=== PATIENT | female | born 1955 | race Caucasian/White ===

== ENCOUNTER 2023-06-19 02:24 | Emergency (ER) | payer BC, OTHER ==
--- OUTSIDE RECORDS SUMMARY | 2023-06-19 02:27 | XMS REPORT | Continuity of Care Document ---
Author Name Unknown Address [address] [place] [address] [address] thconnect Address [address] [facility] 1 [address] [place] [address] Care Team Providers Care Grinding Wheel Dresser Name Role Phone [phone] Primary Care Physician UnavailLIANNE Bacon Attending Clinician Unavailable [email or web address] Attending Clinician UnavailPETEY Olivera Attending Clinician Unavailable DELORES ENGLAND Attending Clinician Unavail able [email or web address] Admitting Clinician Shon krueger Payers Payer Name Policy Type Policy Number Effective Date Expirati on Date Source MEDICARE PART A AND B [id number] 2021 00:00:00 [place] [id number] 2021 00:00:00 Allergies, Adverse Reactions, Alerts Allergy Name Allergy Type Status Severity Reaction(s) Onset Date Inactive Date Treating Clinician Comments Source HYDROCOD ONE DRUG INGREDI Active Other 2013-02 00:00: 00 MD Soo roldan HYDROCOD ONE DRUG INGREDI Active Other 2013-02 00:00: 00 MD Soo roldan HYDROCOD ONE DRUG INGREDI Active Other 2013-02 00:00: 00 MD Soo roldan HYDROCOD ONE DRUG INGREDI Active Other 2013-02 00:00: 00 MD Soo roldan HYDROCOD ONE DRUG INGREDI Active Other 2013-02 00:00: 00 MD Soo roldan HYDROCOD ONE DRUG INGREDI Active Other 2013-02 00:00: 00 MD Soo roldan HYDROCOD ONE DRUG INGREDI Active Other 2013-02 00:00: 00 MD Soo roldan HYDROCOD ONE DRUG INGREDI Active Other 2013-02 00:00: 00 MD Soo roldan HYDROCOD ONE DRUG INGREDI Active Other 2013-02 00:00: 00 MD Soo roldan HYDROCOD ONE DRUG INGREDI Active Other 2013-02 00:00: 00 MD Soo roldan HYDROCOD ONE DRUG INGREDI Active Other 2013-02 00:00: 00 MD Soo roldan HYDROCOD ONE DRUG INGREDI Active Other 2013-02 00:00: 00 MD Soo roldan HYDROCOD ONE DRUG INGREDI Active Other 2013-02 00:00: 00 MD Soo roldan HYDROCOD ONE DRUG INGREDI Active Other 2013-02 00:00: 00 MD Soo roldan HYDROCOD ONE DRUG INGREDI Active Other 2013-02 00:00: 00 MD Soo roldan HYDROCOD ONE DRUG INGREDI Active Other 2013-02 00:00: 00 MD Soo roldan HYDROCOD ONE DRUG INGREDI Active Other 2013-02 00:00: 00 MD Soo roldan HYDROCOD ONE DRUG INGREDI Active Other 2013-02 00:00: 00 MD Soo roldan HYDROCOD ONE DRUG INGREDI Active Other 2013-02 00:00: 00 MD Soo roldan HYDROCOD ONE DRUG INGREDI Active Other 2013-02 00:00: 00 MD Soo roldan HYDROCOD ONE DRUG INGREDI Active Other 2013-02 00:00: 00 MD Soo roldan HYDROCOD ONE DRUG INGREDI Active Other 2013-02 00:00: 00 MD Soo roldan HYDROCOD ONE DRUG INGREDI Active Other 2013-02 00:00: 00 MD Soo roldan HYDROCOD ONE DRUG INGREDI Active Other 2013-02 00:00: 00 MD Soo roldan Encounters Start Date/Time End Date/Time Encounter Type Admission Type Attending [facility] Care Department Encounter ID Source 2023-04-09 10:19:51 2023-04-09 11:02:35 Outpatient LIANNE BERNAL MDA, MDA [id number] MD Soo roldan 2023-04-09 09:24:51 2023-04-09 09:24:51 Outpatient LIANNE BERNAL MDA, MDA [id number] MD Soo roldan 2023-04-09 07:36:44 2023-04-09 07:36:44 Outpatient LIANNE BERNAL MDA MDA [id number] MD Soo roldan 2022-12-20 00:00:00 2022-12-20 00:00:00 Outpatient [email or web address] [email or web address]_S [facility] [id number] [facility] 2022-04-03 13:55:35 2022-04-03 15:05:15 Outpatient LIANNE BERNAL MDA MDA [id number] MD Soo roldan 2022-04-03 13:31:30 2022-04-03 13:31:30 Outpatient LIANNE BERNAL MDA MDA [id number] MD Soo roldan 2022-04-03 12:54:03 2022-04-03 13:26:48 Outpatient PETEY PAN MDA MDA [id number] MD Soo roldan 2021-05-23 12:25:27 2021-05-23 13:04:51 Outpatient PETEY PAN MDA MDA [id number] MD Soo roldan 2021-01-03 12:22:47 2021-01-03 13:59:52 Outpatient PETEY PAN MDA MDA [id number] MD Soo roldan 2021-01-03 10:51:20 2021-01-03 12:06:44 Outpatient DELORES PINK MDA MDA [id number] MD Soo roldan 2021-01-03 10:12:47 2021-01-03 10:12:47 Outpatient LISA KIRBY MDA [id number] MD Soo roldan 2020-03-01 00:00:00 2020-03-01 00:00:00 Outpatient LIANNE BERNAL MDA MDA [id number] MD Soo roldan
[2023-06-19] MEDS ORDERED: ONDANSETRON 4 MG/2 ML VIAL ONE (02:41)
[2023-06-19] MEDS ORDERED: HALOPERIDOL LACT 5 MG/ML INJ ONE (02:41)
[2023-06-19] MEDS ORDERED: MORPHINE 4 MG/ML SYR ONE ×2 (02:42→04:17)
[2023-06-19] MEDS ORDERED: FAMOTIDINE 20 MG/2 ML VIAL IV ONE (02:42)
[2023-06-19] MEDS ORDERED: NA CHLORIDE 0.9% 1,000 ML ONE (02:42)
[2023-06-19 03:25] LABS: RBC Red Blood Cell Count 3.75 M/uL (3.86-4.86)
[2023-06-19 03:26] LABS: Absolute Lymphocytes (CBC) 1.3 K/uL (0.7-4.9); Absolute Monocytes 0.5 K/uL (0.1-1.3); Absolute Neutrophil 11.1 K/uL (1.8-8.0); Basophils % 0.3 % (0-1.3); Eosinophils % 0.2 % (0-4.4); Hematocrit 34.5 % (36.0-45.0); Hemoglobin 11.6 g/dL (12.0-15.0); Lymphocytes % 10.2 % (15.3-44.8); MCH 30.9 pg (27.0-35.0); MCHC 33.5 g/dL (32.0-36.0); MPV 9.3 fL (7.6-11.3); Monocytes % 3.9 % (3.3-12.3); Neutrophils % 85.4 % (41.7-73.7); Platelets 259 thou/uL (152-406)
[2023-06-19 03:37] LABS: Albumin 3.3 g/dL (3.4-5.0); Bilirubin Total 0.4 mg/dL (0.2-1.0); Globulin 3.4 g/dL (2.3-3.5); Protein, Total 6.7 g/dL (6.4-8.2)
[2023-06-19 04:45] LABS: Band Neutrophils 1 % (0-1); Blood Morphology Comment NOT SEEN (NOT SEEN); Differential Total Cells Count 100; Lymphocytes 16 % (15-42); Monocytes 5 % (0-10); Platelet Estimate ADEQ; Segmented Neutrophils 78 % (40-80)
[2023-06-19] MEDS ORDERED: TAMSULOSIN 0.4 MG SR CAP ONE (06:30)
[2023-06-19] MEDS ORDERED: PROMETHAZINE 25 MG TABLET ONE (06:31)
[2023-06-19 06:49] LABS: Sqamous Epithelial <5 /HPF (None Seen); Urine Bacteria None Seen /HPF (<20); Urine Bilirubin NEGATIVE (Negative); Urine Blood 2+ (Negative); Urine Clarity Clear (Clear); Urine Color Light-Yellow (Yellow); Urine Culture Reflex Order NOT NEEDED; Urine Glucose NEGATIVE (Negative); Urine Ketones 1+ (Negative); Urine Microscopic Reflex YN ORDER UMIC; Urine Mucus Slight /HPF (None Seen); Urine Nitrite NEGATIVE (Negative); Urine Protein NEGATIVE (Negative); Urine Urobilinogen Normal (Normal)
--- NOTE | 2023-06-19 07:50 | EDPHYS ---
Physician Documentation [facility] Name: Jorge Ibanez Age: 67 yrs Sex: Female : 1955 Arrival Date: 06/19/2023 Time: 02:24 Bed 7 Private MD: ED Physician Popeye Armstrong HPI: 06/18 02:27 This 67 yrs old Female presents to ER via Unassigned with complaints of right sp4 lower abdominal pain . 20:30 67-year-old female presents with moderate to severe right lower abdominal pain right sp4 flank pain radiation to the right hip. Patient reported moderate to severe pain by EMS. EMS administered Toradol IV. Historical: - Allergies: 02:53 Codeine; ha1 - PMHx: 02:53 Kidney stones; TIA; ha1 - PSHx: 02:53 colecystectomy; ha1 - Immunization history:: Adult Immunizations unknown. - Infectious Disease History:: Denies. - Social history:: Smoking status: Patient reports the use of cigarette tobacco products, smokes one pack cigarettes per day. - Family history:: not pertinent. ROS: 20:30 Constitutional: Negative for fever, chills, and weight loss, positive right lower sp4 abdominal pain positive right flank pain 20:30 All other systems are negative, Exam: 20:30 Constitutional: This is a well developed, well nourished patient who is awake, alert, sp4 and in no acute distress. Head/Face: Normocephalic, atraumatic. Eyes: Pupils equal round and reactive to light, extra-ocular motions intact. Lids and lashes normal. Conjunctiva and sclera are not injected. Cornea within normal limits. Periorbital areas with no swelling, redness, or edema. ENT: Nares patent. No nasal discharge, no septal abnormalities noted. Tympanic membranes are normal and external auditory canals are clear. Oropharynx with no redness, swelling, or masses, exudates, or evidence of obstruction, uvula midline. Mucous membranes moist. Neck: Trachea midline, no thyromegaly or masses palpated, and no cervical lymphadenopathy. Supple, full range of motion without nuchal rigidity, or vertebral point tenderness. Chest/axilla: Normal chest wall appearance and motion. Nontender with no deformity. No lesions are appreciated. Cardiovascular: Regular rate and rhythm with a normal S1 and S2. No gallops, murmurs, or rubs. Normal PMI, no JVD. No pulse deficits. Respiratory: Lungs have equal breath sounds bilaterally, clear to auscultation and percussion. No rales, rhonchi or wheezes noted. No increased work of breathing, no retractions or nasal flaring. Abdomen/GI: Soft, with normal bowel sounds. No distension or tympany. No guarding or rebound. No evidence of tenderness throughout. Back: No spinal tenderness. No costovertebral tenderness. Skin: Warm, dry with normal turgor. Normal color with no rashes, no lesions, and no evidence of cellulitis. MS/ Extremity: Pulses equal, no cyanosis. Neurovascular intact. Full, normal range of motion. Neuro: Awake and alert, GCS 15, oriented to person, place, time, and situation. Cranial nerves II-XII grossly intact. Motor strength 5/5 in all extremities. Sensory grossly intact. Psych: Awake, alert, with orientation to person, place and time. Behavior, mood, and affect are within normal limits Vital Signs: 02:25 BP 120 / 75; Pulse 75; Resp 17 S; Temp 97.8(O); Pulse Ox 98% on R/A; Weight 58.97 kg; ha1 Height 9 ft. 0 in. ; 03:00 BP 120 / 73; Pulse 74; Resp 17 S; Pulse Ox 98% on R/A; ha1 04:00 BP 145 / 79; Pulse 71; Resp 19 S; Pulse Ox 98% on R/A; jw7 05:00 BP 127 / 66; Pulse 61; Resp 19 S; Pulse Ox 97% on R/A; jw7 06:00 BP 104 / 56; Pulse 62; Resp 17 S; Pulse Ox 95% on R/A; ha1 08:11 BP 100 / 50; Pulse 67; Resp 18; Temp 98.1; Pulse Ox 100% on R/A; ap3 02:25 Body Mass Index 7.84 (58.97 kg, 274.32 cm) ha1 [place] Coma Score: 20:30 Eye Response: spontaneous(4). Motor Response: obeys commands(6). Verbal Response: sp4 oriented(5). Total: 15. MDM: 02:26 Patient medically screened. sp4 06:14 ED course: IMPRESSION: 1. There is a 0.8 cm obstructing calculus at the right UVJ sp4 producing moderate right hydroureter and hydronephrosis. 2. Nonobstructing bilateral nephrolithiasis. 3. Mild intra and extrahepatic biliary dilation with the common bile duct measuring up to 1.8 cm. This may be related to prior cholecystectomy. If there is concern for biliary obstruction MRCP could provide additional characterization. Electronically signed by: Tanner Wu DO 06/19/2023 05:56 AM. 20:30 Differential Diagnosis altered mental status, sepsis, flu. Data reviewed: vital signs, sp4 nurses notes, EMS record, old medical records, lab test result(s), radiologic studies, CT scan. Consideration of Admission/Observation Escalation of care including admission/observation considered. ED course: Patient's pain has resolved after medications in the emergency room. Patient discharged with symptomatic management. Advised follow-up with urology.. 06/18 02:26 Order name: CBC with Diff; Complete Time: 06:13 sp4 06/18 02:26 Order name: CMP; Complete Time: 06:13 sp4 06/18 02:26 Order name: Lipase; Complete Time: 06:13 sp4 06/18 02:26 Order name: Urinalysis w/ reflexes; Complete Time: 07:39 sp4 06/18 03:34 Order name: Manual Differential; Complete Time: 06:13 EDMS 06/18 02:26 Order name: CT Abd/Pelvis - IV Contrast Only sp4 06/18 02:26 Order name: IV Saline Lock; Complete Time: 02:39 sp4 06/18 02:26 Order name: Labs collected and sent; Complete Time: 02:39 sp4 Administered Medications: 02:35 Drug: Famotidine IVP 20 mg IVP once; dilute with 10 mL 0.9% NaCl; give over 2 minutes ha1 Route: IVP; Site: right antecubital; 03:00 Follow up: Response: No adverse reaction; Marked relief of symptoms ha1 02:42 Drug: Ondansetron IVP 4 mg IVP once; over 2 minutes Route: IVP; Site: right antecubital;ha1 03:00 Follow up: Response: No adverse reaction; Marked relief of symptoms ha1 02:44 Drug: morphine IVP or IV 4 mg IVP once over 4 mins Route: IVP; Infused Over: 4 mins; ha1 Site: right antecubital; 03:00 Follow up: Response: No adverse reaction; Marked relief of symptoms; Pain is decreased; ha1 RASS: Alert and Calm (0) 02:49 Drug: Haloperidol IVP 2.5 mg/50 mL 2.5 mg IVP once; Place patient on a case monitor ha1 Route: IVP; Site: right antecubital; 03:00 Follow up: Response: No adverse reaction; Marked relief of symptoms ha1 02:49 Drug: NS 0.9% IV 1000 ml IV at 1 bolus Per protocol; 1000 mL bolus Route: IV; Rate: 1 ha1 bolus; Site: right antecubital; 08:12 Follow up: IV Status: Completed infusion; IV Intake: 1000ml ap3 04:23 Drug: morphine IVP or IV 4 mg IVP once over 4 mins Route: IVP; Infused Over: 4 mins; jw7 Site: right antecubital; 05:00 Follow up: Response: No adverse reaction; No change in condition; Pain is decreased; ha1 RASS: Alert and Calm (0) 06:35 Drug: Flomax PO 0.4 mg PO once Route: PO; ha1 06:53 Follow up: Response: No adverse reaction ha1 06:35 Drug: Promethazine PO 25 mg PO once Route: PO; ha1 06:53 Follow up: Response: No adverse reaction ha1 Disposition Summary: 06/19/23 07:50 Discharge Ordered Notes: Location: Home sp4 Problem: new sp4 Symptoms: have improved sp4 Condition: Stable sp4 Diagnosis - Right ureteric calculus. sp4 Followup: sp4 - With: Malcolm Vernon MD - When: 7 - 10 days - Reason: Recheck today's complaints Discharge Instructions: - Discharge Summary Sheet sp4 - Kidney Stones, [id number] sp4 Forms: - Patient Portal Instructions sp4 Prescriptions: - Flomax 0.4 mg Oral capsule - take 1 capsule ORAL route daily; 30 capsule; Refills: 0, Product Selection sp4 Permitted - ketorolac 10 mg Oral tablet - take 1 tablet ORAL route every 8 hours for 4 days for 10 days PRN pain; 30 sp4 tablet; Refills: 0, Product Selection Permitted - ondansetron 8 mg Oral Tablet,disintegrating - take 1 tablet ORAL route every 8 hours PRN; 30 tablet; Refills: 0, Product sp4 Selection Permitted Signatures: Dispatcher [employer] Katie Funes RN RN jw7 Julisa Connors RN RN ha1 Popeye Armstrong MD MD sp4 Ana Mario RN ap3 Corrections: (The following items were deleted from the chart) 02:57 02:53 PSHx: Colectomy; ha1 ha1
--- NOTE | 2023-06-19 07:50 | ER ---
Nurse's Notes [facility] Name: Jorge Ibanez Age: 67 yrs Sex: Female : 1955 Arrival Date: 06/19/2023 Time: 02:24 Bed 7 Private MD: Diagnosis: Right ureteric calculus. Presentation: 06/18 02:25 Chief complaint: EMS states: 67 year old female reports right lower quadrant pain. ha1 Nausea and vomiting. 30 mg of Ketorolac IV were given. 02:25 Coronavirus screen: Vaccine status: Patient reports receiving the 2nd dose of the covid ha1 vaccine. Moderna. Ebola Screen: No symptoms or risks identified at this time. Initial Sepsis Screen: Does the patient meet any 2 criteria? No. Patient's initial sepsis screen is negative. Does the patient have a suspected source of infection? No. Patient's initial sepsis screen is negative. Risk Assessment: Do you want to hurt yourself or someone else? Patient reports no desire to harm self or others. Onset of symptoms was June 19, 2023. 02:25 Method Of Arrival: EMS: [facility] ha1 02:25 Acuity: MILLIE 3 ha1 Triage Assessment: 02:25 General: Appears uncomfortable, Behavior is cooperative. Pain: Complains of pain in ha1 right lower quadrant Pain does not radiate. Pain currently is 9 out of 10 on a pain scale. Quality of pain is described as throbbing, Pain began suddenly. Neuro: Level of Consciousness is awake, alert, obeys commands, Oriented to person, place, time, situation. Cardiovascular: Patient's skin is warm and dry. Respiratory: Airway is patent Respiratory effort is even, unlabored, Respiratory pattern is regular, symmetrical. GI: Abdomen is flat, non-distended, Bowel sounds present X 4 quads. Reports lower abdominal pain, nausea, vomiting. : No signs and/or symptoms were reported regarding the genitourinary system. Derm: Skin is pink, warm \T\ dry. Musculoskeletal: Circulation, motion, and sensation intact. Range of motion: intact in all extremities. Historical: - Allergies: 02:53 Codeine; ha1 - PMHx: 02:53 Kidney stones; TIA; ha1 - PSHx: 02:53 colecystectomy; ha1 - Immunization history:: Adult Immunizations unknown. - Infectious Disease History:: Denies. - Social history:: Smoking status: Patient reports the use of cigarette tobacco products, smokes one pack cigarettes per day. - Family history:: not pertinent. Screenin:58 [facility] ED Fall Risk Assessment (Adult) History of falling in the last 3 months, ha1 including since admission No falls in past 3 months (0 pts) Confusion or Disorientation No (0 pts) Intoxicated or Sedated No (0 pts) Impaired Gait No (0 pts) Mobility Assist Device Used No (0 pt) Altered Elimination No (0 pt) Score/Fall Risk Level 0 - 2 = Low Risk Oriented to surroundings, Maintained a safe environment, Hourly rounding (assess needs \T\ fall precautionary measures) done. Abuse screen: Denies threats or abuse. Denies injuries from another. Nutritional screening: No deficits noted. Tuberculosis screening: No symptoms or risk factors identified. Assessment: 02:25 Reassessment: see triage assessment. ha1 03:25 Reassessment: Patient and/or family updated on plan of care and expected duration. Pain ha1 level reassessed. Patient is alert, oriented x 3, equal unlabored respirations, skin warm/dry/pink. pain 2/10 Patient states feeling better. Patient states symptoms have improved. 04:30 Reassessment: Patient appears in no apparent distress at this time. No changes from jw7 previously documented assessment. Patient and/or family updated on plan of care and expected duration. Pain level reassessed. Patient is alert, oriented x 3, equal unlabored respirations, skin warm/dry/pink. 05:30 Reassessment: Patient appears in no apparent distress at this time. No changes from jw7 previously documented assessment. Patient and/or family updated on plan of care and expected duration. Pain level reassessed. Patient is alert, oriented x 3, equal unlabored respirations, skin warm/dry/pink. 05:57 Reassessment: Patient and/or family updated on plan of care and expected duration. Pain ha1 level reassessed. Patient is alert, oriented x 3, equal unlabored respirations, skin warm/dry/pink. Patient denies pain at this time. Patient states feeling better. Patient states symptoms have improved. 07:32 Reassessment: No changes from previously documented assessment. Patient and/or family ap3 updated on plan of care and expected duration. Pain level reassessed. General: Appears in no apparent distress. Behavior is calm, cooperative, appropriate for age. Neuro: Level of Consciousness is awake, alert, obeys commands, Oriented to person, place, time, situation. Cardiovascular: Patient's skin is warm and dry. Respiratory: Airway is patent Respiratory effort is even, unlabored, Respiratory pattern is regular, symmetrical. Vital Signs: 02:25 BP 120 / 75; Pulse 75; Resp 17 S; Temp 97.8(O); Pulse Ox 98% on R/A; Weight 58.97 kg; ha1 Height 9 ft. 0 in. ; 03:00 BP 120 / 73; Pulse 74; Resp 17 S; Pulse Ox 98% on R/A; ha1 04:00 BP 145 / 79; Pulse 71; Resp 19 S; Pulse Ox 98% on R/A; jw7 05:00 BP 127 / 66; Pulse 61; Resp 19 S; Pulse Ox 97% on R/A; jw7 06:00 BP 104 / 56; Pulse 62; Resp 17 S; Pulse Ox 95% on R/A; ha1 08:11 BP 100 / 50; Pulse 67; Resp 18; Temp 98.1; Pulse Ox 100% on R/A; ap3 02:25 Body Mass Index 7.84 (58.97 kg, 274.32 cm) ha1 Cylinder Coma Score: 20:30 Eye Response: spontaneous(4). Motor Response: obeys commands(6). Verbal Response: sp4 oriented(5). Total: 15. ED Course: 02:25 Patient arrived in ED. ha1 02:25 Maintain EMS IV. Dressing intact. Good blood return noted. Site clean \T\ dry. Gauge \T\ mabry 1 site: 18 gauge RAC. 02:25 Patient has correct armband on for positive identification. Placed in gown. Bed in low ha1 position. Call light in reach. Side rails up X 1. 02:25 Arm band placed on right wrist. ha1 02:26 Popyee Armstrong MD is Attending Physician. sp4 02:39 Julisa Connors RN is Primary Nurse. ha1 02:39 CBC with Diff Sent. ha1 02:39 CMP Sent. ha1 02:39 Lipase Sent. ha1 02:53 Triage completed. ha1 04:56 CT Abd/Pelvis - IV Contrast Only In Process Unspecified. EDMS 07:34 Primary Nurse role handed off by Julisa Connors, ODELL ap3 07:34 Ana Mario, ODELL is Primary Nurse. ap3 07:49 Malcolm Vernon MD is Referral Physician. sp4 08:11 No provider procedures requiring assistance completed. IV discontinued, intact, ap3 bleeding controlled, No redness/swelling at site. Pressure dressing applied. 08:12 Provided Education on: discharge instructions. ap3 Administered Medications: 02:35 Drug: Famotidine IVP 20 mg IVP once; dilute with 10 mL 0.9% NaCl; give over 2 minutes ha1 Route: IVP; Site: right antecubital; 03:00 Follow up: Response: No adverse reaction; Marked relief of symptoms ha1 02:42 Drug: Ondansetron IVP 4 mg IVP once; over 2 minutes Route: IVP; Site: right antecubital;ha1 03:00 Follow up: Response: No adverse reaction; Marked relief of symptoms ha1 02:44 Drug: morphine IVP or IV 4 mg IVP once over 4 mins Route: IVP; Infused Over: 4 mins; ha1 Site: right antecubital; 03:00 Follow up: Response: No adverse reaction; Marked relief of symptoms; Pain is decreased; ha1 RASS: Alert and Calm (0) 02:49 Drug: Haloperidol IVP 2.5 mg/50 mL 2.5 mg IVP once; Place patient on a dairy equipment specialist ha1 Route: IVP; Site: right antecubital; 03:00 Follow up: Response: No adverse reaction; Marked relief of symptoms ha1 02:49 Drug: NS 0.9% IV 1000 ml IV at 1 bolus Per protocol; 1000 mL bolus Route: IV; Rate: 1 ha1 bolus; Site: right antecubital; 08:12 Follow up: IV Status: Completed infusion; IV Intake: 1000ml ap3 04:23 Drug: morphine IVP or IV 4 mg IVP once over 4 mins Route: IVP; Infused Over: 4 mins; jw7 Site: right antecubital; 05:00 Follow up: Response: No adverse reaction; No change in condition; Pain is decreased; ha1 RASS: Alert and Calm (0) 06:35 Drug: Flomax PO 0.4 mg PO once Route: PO; ha1 06:53 Follow up: Response: No adverse reaction ha1 06:35 Drug: Promethazine PO 25 mg PO once Route: PO; ha1 06:53 Follow up: Response: No adverse reaction ha1 Medication: 02:59 VIS not applicable for this client. ha1 Intake: 08:12 IV: 1000ml; Total: 1000ml. ap3 Outcome: 07:50 Discharge ordered by . sp4 08:12 Discharged to home via wheelchair, with family, ap3 08:12 Condition: good 08:12 Discharge instructions given to patient, family, Instructed on discharge instructions, follow up and referral plans. medication usage, Demonstrated understanding of instructions, follow-up care, medications, Prescriptions given X 4, 08:12 Patient left the ED. ap3 Signatures: Dispatcher [employer] EDAna Hearn RN RN ap3 Katie Ray RN RN jw7 Julisa Connors RN RN ha1 Popeye Armstrong MD MD sp4 Corrections: (The following items were deleted from the chart) 02:57 02:53 PSHx: Colectomy; ha1 ha1 03:28 03:26 BP 120 / 73; Pulse 74bpm; Resp 17bpm; Spontaneous; Pulse Ox 98% RA; ha1 ha1
[2023-06-19 08:23] VITALS: BP 100/50; TEMP 98.1; O2SAT 100
--- NOTE | 2023-06-19 17:10 | RAD REPORT ---
EXAM DESCRIPTION: CT - Abdomen Pelvis W Contrast - 06/19/2023 6:34 am CLINICAL HISTORY: ABD PAIN COMPARISON: 03/25/2020 TECHNIQUE: CT of the abdomen and pelvis performed following IV administration of iodinated contras t. This exam was performed according to our departmental dose-optimization program, which includes au tomated exposure control, adjustment of the mA and/or kV according to patient size and/or use of iter ative reconstruction technique. FINDINGS: Lung Bases: Mild bilateral subsegmental atelectasis. Bones: No acute osseous abnormality identified. Abdomen: Liver: The liver has normal size. Mild focal fatty infiltration along the falciform ligament. Mild in tra and extrahepatic biliary dilation with the common bile duct measuring up to 1.8 cm. Likely small hepatic cysts. Gallbladder: Prior cholecystectomy. Spleen, Pancreas, and Adrenal Glands: The spleen, pancreas, and right adrenal gland are unremarkabl e. Stable left adrenal nodule measuring 1.2 cm. Not significantly changed from 03/25/2020. No follow-up imaging for the structure recommended. Kidneys: Nonobstructing bilateral nephrolithiasis. Wedge-shaped cortical defects in the kidneys cece aterally likely related to previous infectious or inflammatory insult. There is a 0.8 cm obstructing calculus at the right UVJ producing moderate right hydroureter and hydronephrosis. No left-sided hydr onephrosis. Vasculature: Aortoiliac atherosclerosis. IVC is unremarkable. The portal vein is patent. The proxim al visceral and renal arteries are patent. Stomach: The stomach and duodenum have normal course. Other: No free intraperitoneal air. No free fluid or lymphadenopathy. Pelvis: Bladder: Anterior bladder diverticulum. Bowel: No dilated loops of large or small bowel. Appendix: Normal appendix. Pelvis: Prior hysterectomy. IMPRESSION: 1. There is a 0.8 cm obstructing calculus at the right UVJ producing moderate right hy droureter and hydronephrosis. 2. Nonobstructing bilateral nephrolithiasis. 3. Mild intra and extrahepatic biliary dilation with the common bile duct measuring up to 1.8 cm. T his may be related to prior cholecystectomy. If there is concern for biliary obstruction MRCP could p rovide additional characterization. Electronically signed by: Tanner Wu DO 06/19/2023 05:56 AM CDT M Due to temporary technical issues with the PACS/Fluency reporting system, reports are being signed by the in house radiologists without review as a courtesy to insure prompt reporting. The interpreting radiologist is fully responsible for the content of the report.
== END 2023-06-19 08:12 | disposition home or self-care (01) ==
LOC: ER 02:24
DX: N20.1 Calculus of ureter (principal); Z87.442 Personal history of urinary calculi; F17.210 Nicotine dependence, cigarettes, uncomplicated; Z88.5 Allergy status to narcotic agent
CPT/HCPCS: 96361; 85025; 81001; 36415; 83690; 80053; 74177; 96375; 96374; 99284; Q9967; Q0169; J1630; J2405; J7030